=== PATIENT | female | born 1950 | race Caucasian/White ===

== ENCOUNTER → 2016-08-22 | Outpatient (CLI) | payer OTHER | LOC: FIMAGING 15:10 | DX: Z12.31 Encounter for screening mammogram for malignant neoplasm of breast (principal) | CPT/HCPCS: G0202 ==

== ENCOUNTER → 2016-08-30 | Outpatient (CLI) | payer OTHER ==
[~2016-08-30] MED LIST: IOPAMIDOL (ISOVUE-300) 100 ML BTL IV ONE
== END ==
LOC: FIMAGING 12:06
PROVIDERS: ATTEND Internal Medicine
DX: K59.00 Constipation, unspecified (principal)
CPT/HCPCS: Q9967

== ENCOUNTER → 2017-04-30 | Outpatient (CLI) | payer OTHER, MEDICARE | LOC: BMCIMAGING 13:41 | PROVIDERS: ATTEND Internal Medicine | DX: Z13.820 Encounter for screening for osteoporosis (principal) ==

== ENCOUNTER → 2017-08-27 | Outpatient (CLI) | payer OTHER, MEDICARE | LOC: FIMAGING 15:38 | PROVIDERS: ATTEND Internal Medicine | DX: Z12.31 Encounter for screening mammogram for malignant neoplasm of breast (principal) ==

== ENCOUNTER → 2018-09-23 | Outpatient (CLI) | payer OTHER, MEDICARE | LOC: FIMAGING 13:16 | PROVIDERS: ATTEND Internal Medicine | DX: Z12.31 Encounter for screening mammogram for malignant neoplasm of breast (principal) ==

== ENCOUNTER → 2018-10-01 | Outpatient (CLI) | payer OTHER, MEDICARE | LOC: FIMAGING 07:08 | PROVIDERS: ATTEND Nurse Practitioner Adult Health | DX: R16.0 Hepatomegaly, not elsewhere classified (principal) ==